=== PATIENT | male | born 1985 | race Caucasian/White ===

== ENCOUNTER 2017-04-15 04:38 | Emergency (ER) | payer SELFPAY ==
[~2017-04-15] VITALS: Ht 185.4 cm; Wt 81.5 kg
[~2017-04-15 04:38] MED LIST: ALPR1TAB7 PO
[2017-04-15 05:28] LABS: BASOPHILS # (AUTO) 0.02 K/uL (0.00-0.20); BASOPHILS % (AUTO) 0.6 % (0.0-2.0); EOSINOPHILS # (AUTO) 0.08 K/uL (0.00-0.70); EOSINOPHILS % (AUTO) 1.94 % (1.0-6.0); HEMATOCRIT 47.7 % (41-53); HEMOGLOBIN 15.7 g/dL (13.5-17.5); LYMPHOCYTES # (AUTO) 1.4 K/uL (1.0-4.8); LYMPHOCYTES % (AUTO) 35.5 % (22.0-44.0); MEAN CORPUSCULAR HEMOGLOBIN 29.3 pg (26.0-34.0); MEAN CORPUSCULAR HGB CONC 32.9 G/dL (31.0-37.0); MEAN CORPUSCULAR VOLUME 89 fL (80-100); MONOCYTES # (AUTO) 0.4 K/uL (0.1-1.0); MONOCYTES % (AUTO) 9.8 % (2.0-9.0); NEUTROPHILS # (AUTO) 2.1 K/uL (1.8-7.7); NEUTROPHILS % (AUTO) 52.2 % (40.0-70.0); PLATELET COUNT (AUTO) 189 K/uL (150-450); RED BLOOD CELL COUNT(AUTO) 5.36 MIL/uL (4.50-5.90); RED CELL DISTRIBUTION WIDTH 14.9 % (11.5-14.5)
[2017-04-15 05:37] LABS: ANION GAP 8 mmol/L (8-16); CALCIUM, TOTAL 8.6 mg/dL (8.8-10.5); CARBON DIOXIDE 30 mmol/L (22-29); CHLORIDE 97 mmol/L (98-107); CREATININE 1.07 mg/dL (0.60-1.30); GLOMERULAR FILTR. RATE CALC > 60 mL/min (>60); POTASSIUM 3.2 mmol/L (3.5-5.1); SODIUM SERUM 135 mmol/L (136-145); UREA NITROGEN, BLOOD 9 mg/dL (7-18)
[2017-04-15 05:51] LABS: ALBUMIN 4.1 g/dL (3.4-5.0); BILIRUBIN,TOTAL 5.2 mg/dL (0.1-1.0); TOTAL PROTEIN, SERUM 7.7 g/dL (6.4-8.2)
[2017-04-15 05:54] LABS: ASPARTATE AMINOTRANSFERASE 1966 U/L (15-37)
[2017-04-15] MEDS ORDERED: ONDANSETRON HCL 4 MG/2 ML VIAL IVP ONE (06:30)
[2017-04-15] MEDS ORDERED: SODIUM CHLORIDE 0.9% 1,000 ML IV ONE (06:30)
[2017-04-15 06:31] LABS: ALANINE AMINOTRANSFERASE 3752 U/L (12-78)
[2017-04-15 07:15] LABS: INR 1.3 (0.9-1.1); PROTHROMBIN TIME 13.4 SEC (9.4-11.6)
[2017-04-15 07:29] VITALS: BP 125/78
[2017-04-15 07:29] LABS: APPEARANCE,URINE CLEAR (CLEAR); GLUCOSE, URINE (UA) NEGATIVE (NEGATIVE); KETONES,URINE NEGATIVE (NEGATIVE); LEUKOCYTE ESTERASE ,URINE TRACE (NEGATIVE); OCCULT BLOOD,URINE NEGATIVE (NEGATIVE); PROTEIN,URINE NEGATIVE (NEGATIVE)
[2017-04-15 07:32] LABS: ADD UA MICROSCOPIC YES
[2017-04-15 07:33] LABS: RBC,URINE 0-2 /HPF (0-2); WBC,URINE 0-2 /HPF (0-5)
[2017-04-16 13:08] LABS: HEPATITIS Bs ANTIGEN SCREEN P Negative (Negative); HEPATITIS C AB SCREEN <0.1 s/co ratio (0.0-0.9)
== END 2017-04-15 08:40 | disposition left against medical advice (07) ==
LOC: EMS 04:40
DX: K75.9 Inflammatory liver disease, unspecified (principal); F17.210 Nicotine dependence, cigarettes, uncomplicated
CPT/HCPCS: 36415; 76705; 80053; 80074; 81001; 83690; 85025; 85610; 93005; 96361; 96374; 99285; J2405; J7030

== ENCOUNTER 2017-12-01 01:27 | Inpatient (IN) | payer SELFPAY ==
[~2017-12-01] VITALS: Ht 182.9 cm; Wt 70.3 kg
[2017-12-01 02:24] LABS: AMPHET/METH SCREEN,URINE NEGATIVE (NEGATIVE); BARBITURATE SCREEN, URINE NEGATIVE (NEGATIVE); BENZODIAZEPINES SCREEN,URINE NEGATIVE (NEGATIVE); CANNABINOID SCREEN,URINE POSITIVE (NEGATIVE); COCAINE SCREEN,URINE NEGATIVE (NEGATIVE); METHADONE SCREEN, URINE NEGATIVE (NEGATIVE); OPIATE SCREEN,URINE NEGATIVE (NEGATIVE)
[2017-12-01 02:27] LABS: PHENCYCLIDINE SCREEN,URINE NEGATIVE (NEGATIVE)
[2017-12-01] MEDS ORDERED: ZOLPIDEM TARTRATE 10 MG TABLET PO PRN (03:00)
[2017-12-01] MEDS ORDERED: HALOPERIDOL 5 MG TABLET PO PRN (03:00)
[2017-12-01] MEDS ORDERED: BUPIVACAINE HCL/PF 0.25% 10 ML VIAL INJ ONE (03:30)
[2017-12-01] MEDS ORDERED: BACITRACIN 0.9 GM PACKET OINTMENT TP ONE (03:30)
[2017-12-01] MEDS ORDERED: ALPRAZolam 0.25 MG TABLET PO ONE (03:30)
[2017-12-01] MEDS ORDERED: NICOTINE 21 MG/24 HOUR PATCH TD ONE (04:15)
[2017-12-01] MEDS ORDERED: ALBUTEROL SULFATE HFA 90 MCG/PUFF 8 GM INHALER IH PRN (07:00)
[2017-12-01] MEDS ORDERED: BENZOCAINE/MENTHOL LOZENGE MM PRN (07:00)
[2017-12-01] MEDS ORDERED: ONDANSETRON HCL 4 MG TABLET PO PRN (07:00)
[2017-12-01] MEDS ORDERED: MAGNESIUM HYDROXIDE SUSPENSION 30 ML UDCUP PO PRN (07:00)
[2017-12-01] MEDS ORDERED: IBUPROFEN 600 MG TABLET PO PRN (07:00)
[2017-12-01] MEDS ORDERED: LOPERAMIDE HCL 2 MG CAPSULE PO PRN (07:00)
[2017-12-01] MEDS ORDERED: CloNIDine HCL 0.1 MG TABLET PO PRN (07:00)
[2017-12-01] MEDS ORDERED: PETROLATUM,WHITE 71 GM JELLY TP PRN (07:00)
[2017-12-01] MEDS ORDERED: BACITRACIN 28.4 GM OINTMENT TP PRN (07:00)
[2017-12-01] MEDS ORDERED: MAG HYDROX/AL HYDROX/SIMETH ES 30 ML SUSPENSION UDCUP PO PRN (07:00)
[2017-12-01] MEDS ORDERED: ACETAMINOPHEN 325 MG TABLET PO PRN (07:00)
[2017-12-01] MEDS: LORazepam 2 MG TABLET PO PRN ×2 (10:19→20:19)
[2017-12-01 12:00] VITALS: BP 128/72
[2017-12-01 16:00] VITALS: BP 130/74
[2017-12-01] MEDS: NICOTINE 21 MG/24 HOUR PATCH TD SCH (20:54)
[2017-12-02 07:06] VITALS: BP 101/62
[2017-12-02 08:18] VITALS: BP 138/80
[2017-12-02] MEDS: NICOTINE 21 MG/24 HOUR PATCH TD SCH (08:31)
[2017-12-02] MEDS: LORazepam 2 MG TABLET PO PRN ×2 (08:31→12:47)
[2017-12-02 09:18] LABS: CHOL/HDL RATIO 4.1 (4.2-7.3)
== END 2017-12-02 16:50 | disposition home or self-care (01) | DRG 880 ==
LOC: EMS 01:28 → B3A 09:34
PROVIDERS: ADMIT Psychiatry & Neurology Child & Adolescent Psychiatry; ATTEND Psychiatry & Neurology Child & Adolescent Psychiatry
DX: F41.9 Anxiety disorder, unspecified (principal); F22 Delusional disorders; F10.129 Alcohol abuse with intoxication, unspecified; F12.90 Cannabis use, unspecified, uncomplicated; F17.200 Nicotine dependence, unspecified, uncomplicated; G43.909 Migraine, unspecified, not intractable, without status migrainosus; G47.00 Insomnia, unspecified; R04.0 Epistaxis; S00.83XA Contusion of other part of head, initial encounter; S51.811A Laceration without foreign body of right forearm, initial encounter; S61.519A Laceration without foreign body of unspecified wrist, initial encounter; Z71.51 Drug abuse counseling and surveillance of drug abuser; Z71.6 Tobacco abuse counseling; Z80.9 Family history of malignant neoplasm, unspecified; X78.8XXA Intentional self-harm by other sharp object, initial encounter; Y93.89 Activity, other specified; Y92.89 Other specified places as the place of occurrence of the external cause; Y99.8 Other external cause status
CPT/HCPCS: 12001; 70160; 99285; J3490

== ENCOUNTER 2017-12-27 12:41 | Emergency (ER) | payer MEDICAID ==
[~2017-12-27] VITALS: Ht 185.4 cm; Wt 77.3 kg
[2017-12-27] MEDS ORDERED: MULT-1285 PO (13:27)
[2017-12-27 14:06] VITALS: BP 144/96
== END 2017-12-27 14:26 | disposition home or self-care (01) ==
LOC: EMS 12:42
DX: S60.221A Contusion of right hand, initial encounter (principal); F17.210 Nicotine dependence, cigarettes, uncomplicated; X58.XXXA Exposure to other specified factors, initial encounter; Y93.89 Activity, other specified; Y92.89 Other specified places as the place of occurrence of the external cause; Y99.8 Other external cause status
CPT/HCPCS: 99281; 99406

== ENCOUNTER 2018-02-07 22:11 | Emergency (ER) | payer MEDICAID ==
[~2018-02-07] VITALS: Ht 180.3 cm; Wt 77.3 kg
[~2018-02-07 22:11] MED LIST changes: -ALPR1TAB7 PO; +MULT-1285 PO
[2018-02-07] MEDS ORDERED: SODIUM CHLORIDE 0.9% 1,000 ML IV ONE (23:45)
[2018-02-07] MEDS ORDERED: KETOROLAC TROMETHAMINE 30 MG/ML VIAL IVP ONE (23:45)
[2018-02-07] MEDS ORDERED: METOCLOPRAMIDE HCL 5 MG/ML 2 ML VIAL IVP ONE (23:45)
[2018-02-08 02:01] VITALS: BP 129/74
== END 2018-02-08 02:14 | disposition home or self-care (01) ==
LOC: EMS 22:12
DX: G43.909 Migraine, unspecified, not intractable, without status migrainosus (principal); F17.210 Nicotine dependence, cigarettes, uncomplicated; F12.90 Cannabis use, unspecified, uncomplicated
CPT/HCPCS: 96361; 96374; 96375; 99284; 99406; J1885; J2765; J7030

== ENCOUNTER 2019-02-20 09:03 | Emergency (ER) | payer MEDICAID ==
[~2019-02-20] VITALS: Ht 185.4 cm; Wt 77.3 kg
[2019-02-20 09:39] VITALS: BP 133/91
== END 2019-02-20 09:52 | disposition home or self-care (01) ==
LOC: EMS 09:04
DX: J32.9 Chronic sinusitis, unspecified (principal); R10.84 Generalized abdominal pain; R19.7 Diarrhea, unspecified; F12.90 Cannabis use, unspecified, uncomplicated; F41.9 Anxiety disorder, unspecified; G43.909 Migraine, unspecified, not intractable, without status migrainosus

== ENCOUNTER 2019-08-16 13:29 | Emergency (ER) | payer MEDICAID ==
[~2019-08-16] VITALS: Ht 185.4 cm; Wt 79.5 kg
[2019-08-16] MEDS ORDERED: IBUPROFEN 800 MG TABLET PO ONE (14:45)
[2019-08-16 17:26] VITALS: BP 140/92
== END 2019-08-16 17:29 | disposition home or self-care (01) ==
LOC: EMS 13:30
DX: S93.601A Unspecified sprain of right foot, initial encounter (principal); F41.9 Anxiety disorder, unspecified; F12.90 Cannabis use, unspecified, uncomplicated; X50.1XXA Overexertion from prolonged static or awkward postures, initial encounter; Y93.89 Activity, other specified; Y92.89 Other specified places as the place of occurrence of the external cause; Y99.8 Other external cause status

== ENCOUNTER 2020-12-18 11:20 | Emergency (ER) | payer MEDICAID ==
[~2020-12-18] VITALS: Ht 185.4 cm; Wt 81.8 kg
[2020-12-18] MEDS ORDERED: SUMA25TA9 PO (11:31)
[2020-12-18] MEDS ORDERED: PROP10TA73 NASAL (11:31)
[2020-12-18 12:22] LABS: COVID AG,FIA SOURCE NASOPHARYNGEAL
[2020-12-18 12:44] VITALS: BP 158/105
== END 2020-12-18 12:48 | disposition home or self-care (01) ==
LOC: EMS 11:24
DX: G43.909 Migraine, unspecified, not intractable, without status migrainosus (principal); R05 Cough; F41.9 Anxiety disorder, unspecified; F12.90 Cannabis use, unspecified, uncomplicated; Z20.822 Contact with and (suspected) exposure to COVID-19
CPT/HCPCS: 87426; 99283

== ENCOUNTER 2022-02-14 16:47 | Emergency (ER) | payer MEDICAID ==
[~2022-02-14] VITALS: Ht 182.9 cm; Wt 80.9 kg
[~2022-02-14 16:47] MED LIST changes: -MULT-1285 PO; +PROP10TA73 NASAL; +SUMA25TA9 PO
[2022-02-14] MEDS ORDERED: IBUPROFEN 600 MG TABLET PO ONE (17:45)
[2022-02-14 19:27] VITALS: BP 129/78
== END 2022-02-14 19:40 | disposition home or self-care (01) ==
LOC: EMS 17:09
DX: S83.91XA Sprain of unspecified site of right knee, initial encounter (principal); G43.909 Migraine, unspecified, not intractable, without status migrainosus; F41.9 Anxiety disorder, unspecified; F17.210 Nicotine dependence, cigarettes, uncomplicated; V29.9XXA Motorcycle rider (driver) (passenger) injured in unspecified traffic accident, initial encounter; Y93.89 Activity, other specified; Y92.89 Other specified places as the place of occurrence of the external cause; Y99.8 Other external cause status
CPT/HCPCS: 29505; 99284; 73564-TC; 73590-TC; 73610-TC; Z7502; Z7610

== ENCOUNTER 2024-07-06 09:34 | Emergency (ER) | payer MEDICAID ==
[~2024-07-06] VITALS: Ht 183.5 cm; Wt 93.2 kg
[2024-07-06 09:44] VITALS: BP 130/94; PULSE 88; RESP 14; TEMP 98
== END 2024-07-06 12:36 | disposition home or self-care (01) ==
LOC: EMS 09:34
DX: S83.91XA Sprain of unspecified site of right knee, initial encounter (principal); F17.210 Nicotine dependence, cigarettes, uncomplicated; W01.0XXA Fall on same level from slipping, tripping and stumbling without subsequent striking against object, initial encounter; Y93.89 Activity, other specified; Y92.89 Other specified places as the place of occurrence of the external cause; Y99.8 Other external cause status
CPT/HCPCS: 99282; Z7502